=== PATIENT | male | born 1985 | race Caucasian/White ===

== ENCOUNTER 2019-11-11 17:25 | Observation (INO) ==
--- NOTE | 2019-11-11 17:48 | PROVIDER DOCUMENTATION ---
HPI-General Adult - General Stated Complaint: "OD, ??? " Time Seen by Provider: 11/11/19 17:32 Source: patient Allergies/Adverse Reactions: Patient Allergies Allergy/AdvReac Type Severity Reaction Status Date / Time No Known Allergies Allergy Verified 11/11/19 18:55 - History of Present Illness -Gen Adult Nature of Presenting Problems: Patient was apparently arrested early this morning and throughout the day became more and more altered. The officer with him was not able to tell me why the patient was originally arrested. He is unable to tell me if he drank anything or took any type of drugs. He is very restless and stated that he has been hearing voices but he doesn't want to harm himself or anyone else. He is rocking back and forth in the chair but is pleasant. He is covered in scratches and small abrasions but doesn't know why and states he is not in pain. He appears to be missing his left eye and states that he "pulled it out in a bar." Review of Systems - Adult - REVIEW OF SYSTEMS - ADULT Constitutional: reports: no symptoms reported. denies: chills, fever, fatique, night sweats, weight gain, weight loss Eyes: reports: see HPI. denies: discharge, dry eyes, decreased vision, double vision, eye pain, redness Ears, Nose, Mouth & Throat: reports: no symptoms reported. denies: ear discharge, hearing loss, tinnitus, epistaxis, nose pain, loose teeth, mouth swelling, hoarseness, throat swelling Cardiovascular: reports: no symptoms reported. denies: chest pain, heart murmur, irregular heart rate, palpitations, poor circulation, PND, syncope Respiratory: reports: no symptoms reported. denies: chronic cough, cough, dyspnea on exertion, hemoptysis, pleurisy, shortness of breath, wheezing Gastrointestinal: reports: no symptoms reported. denies: abdominal pain, hematemesis, diarrhea, frequent heartburn, nausea, poor appetite, rectal bleeding, vomiting Genitourinary: reports: no symptoms reported. denies: dysuria, frequency, hematuria, incontinence, urinary retention, urgency Musculoskeletal: reports: no symptoms reported. denies: bone pain, back pain, frequent leg cramps, joint swelling, muscle aches, muscle weakness, neck pain Integumentary: reports: no symptoms reported. denies: hives, itching, nail changes, rash, skin sores/ulcer Neurological: reports: no symptoms reported. denies: ataxia, dizziness/vertigo, headache/migraines, loss of balance, numbness, seizure, slurred speech, syncope Psychiatric: reports: no symptoms reported. denies: anxiety, anti-depressant use, alcohol/drug dependence, insomnia, panic attacks Endocrine: reports: no symptoms reported. denies: change in skin pigment, excessive sweating, goiter, heat intolerance, increased hunger, increased thirst Hematologic/Lymphatic: reports: no symptoms reported. denies: blood clots, easy bruising, low blood count, swollen lymph nodes, transfusions Allergic/Immunologic: reports: no symptoms reported. denies: allergic reactions, allergic rhinitis, asthma, food allergy, hay fever, hives, positive PPD All Other Systems: Reviewed and Negative Past History - Adult - PAST MEDICAL HISTORY-ADULT Review of Records: reports: Old Records Reviewed, Nursing Assessment Review, Medications Reviewed, Social history reviewed & non-contributory. Major Childhood Illnesses: reports: denies history Cardiovascular: reports: denies history Respiratory: reports: denies history Gastrointestinal: reports: denies history Obstetrical/Gynecological: reports: denies history Genitourinary: reports: denies history Musculoskeletal: reports: denies history Neurological: reports: denies history Psychiatric: reports: denies history Endocrine/Immune: reports: denies history Other Conditions: reports: denies history - PRIOR SURGERIES/PROCEDURES Surgical/Procedure History: reports: reviewed, not pertinent - IMMUNIZATION STATUS Childhood Immunizations: See Nurse Assessment Flu Vaccine: See Nurse Assessment - FAMILY HISTORY Family History: reviewed, not pertinent - SOCIAL HISTORY Smoking: denies Substance Use: denies Physical Exam-General - PHYSICAL EXAM-ADULT Initial Vital Signs Reviewed: Yes - CONSTITUTIONAL General Appearance: alert, no apparent distress, other (aggitated) - EYES Eyes: other (missing left eye) - HEAD, EARS, NOSE, MOUTH & THROAT HENMT: moist mucous membranes, normal ENT inspection (brusing around the left eye), other - NECK Neck: non-tender, full range of motion, supple - RESPIRATORY Respiratory: chest non-tender, lungs clear, normal breath sounds, no pleuratic chest pain - CARDIOVASCULAR Cardiovascular: normal peripheral pulses, regular rate, rhythm, no edema - GASTROINTESTINAL (ABDOMEN) Abdominal Exam: normal bowel sounds, non tender, soft - MUSCULOSKELETAL Back Exam: normal inspection, no CVA tenderness Extremity: normal range of motion, non-tender, normal gait - SKIN Integumentary: abrasion(s), ecchymosis (left eye) - NEUROLOGIC Neurologic: other (unable to assess r/t mentation) - PSYCHIATRIC Psych/Mental Status: anxious, disheveled, paranoid Progress - PLAN OF CARE/RESULTS Progress/Plan/Lab Results: Orders Category Date Time Status CT HEAD W/O CONTRAST [CT] Stat Exams 11/11/19 17:41 Ordered CBC WITH DIFF [HEME] Stat Lab 11/11/19 17:42 Ordered COMPREHENSIVE METABOLIC PANEL [CHEM] Stat Lab 11/11/19 17:42 Uncollected SALICYLATES [TDM] Stat Lab 11/11/19 17:42 Uncollected Tylenol [ACETAMINOPHEN] [TDM] Stat Lab 11/11/19 17:42 Uncollected UA NIMS W/REFLEX CULT [URINALYSIS] Stat Lab 11/11/19 17:41 Uncollected URINE DRUG SCREEN Stat Lab 11/11/19 17:41 Uncollected Result Diagrams: 11/11/19 18:10 11/11/19 18:10 - CT/MRI 2 CT Study: Head Impression: Normal, See EMR Report Departure - Departure Date of Disposition Decision: 11/11/19 Time of Disposition Decision: 20:04 DIAGNOSIS: Overdose Qualifiers: Encounter type: initial encounter Injury intent: undetermined intent Qualified Code(s): T50.904A - Poisoning by unspecified drugs, medicaments and biological substances, undetermined, initial encounter Disposition: ADMITTED INPATIENT Certified Medical Emergency: Emergent Condition: Critical Additional Instructions: ED Follow Up Instructions: You have been treated by a care provider in the Emergency Department. These instructions are being provided to you so you can have an understanding of how to care for yourself upon discharge. Upon discharge from the Emergency Depar tme, you are responsible for making arrangements for follow-up care by a physician of your choice. Take all prescribed medications as directed. Return to the Emergency Department immediately for any new or worsening symptoms. You may call the Physician Referral phone number at [phone] to obtain a list of Physicians who are taking new patients. Referrals and Follow-Ups: None,PCP [Primary Care Provider] - - Critical Care Note This patient required my direct & personal management of CC.: No Attestation - Physician/ IDALMIS Attestation Patient care was provided by Advanced Practice Provider:: Yes Advanced Practice Provider:: Guillaume Figueroa Advanced Practice Provider documentation review:: The Mid-level provider documentation, treatment plan and medical decision making was reviewed by the physician who agrees with all treatment and medical decision making by the MLP. The physician spent face to face time with patient:: No Advanced Practice Provider documentation review:: Supervising physician onsite and consulted in the evaluation and care of this patient. The physician did not have a face to face encounter with the patient.
[2019-11-11 18:23] LABS: BASO# 0.03 X1000 (0.0-0.2); BASO% 0.3 % (0.0-0.8); EOS# 0.21 X1000 (0.0-0.7); EOS% 1.8 % (0.0-10.0); HEMATOCRIT 44.5 % (42.0-52.0); HEMOGLOBIN 15.2 g/dL (14.0-18.0); IMM GRAN# 0.02 X1000 (0.0-0.04); IMM GRAN% 0.2 % (0.0-0.5); LYMPH# 3.32 X1000 (1.2-3.4); LYMPH% 28.7 % (20.5-51.1); MCH 29.2 PG (27-31); MCHC 34.2 g/dL (33-37); MCV 85.6 FL (81-99); MONO# 0.83 X1000 (0.11-0.59); MONO% 7.2 % (1.7-9.3); MPV 12.5 FL (7.4-10.4); NEUT# 7.14 X1000 (1.4-6.5); NEUT% 61.8 % (42.2-75.2); PLT 202 X1000 (130-400); RDW 13.5 % (11.5-14.5); WBC 11.55 X1000 (4.8-10.8)
[2019-11-11] MEDS ORDERED: STERILE WATER INJ. INJ ONE (18:45)
[2019-11-11] MEDS ORDERED: BENADRYL IM ONE (18:45)
[2019-11-11] MEDS ORDERED: ATIVAN IM ONE (18:45)
[2019-11-11] MEDS ORDERED: GEODON IM ONE (18:45)
[2019-11-11] MEDS ORDERED: ATIVAN ONE (18:50)
[2019-11-11] MEDS ORDERED: GEODON ONE (18:50)
[2019-11-11] MEDS ORDERED: BENADRYL ONE (18:51)
[2019-11-11] MEDS ORDERED: STERILE WATER INJ. ONE (18:51)
[2019-11-11 19:38] LABS: ACETAMINOPHEN < 1.2 ug/mL (10-30); AGAP 24; ALB/GLOB RATIO 1.8; ALBUMIN 4.8 g/dL (3.5-5.0); ALKALINE PHOSPHATASE 74 U/L (32-122); BUN 16 mg/dL (8-22); CALCIUM 9.5 mg/dL (8.8-10.2); CHLORIDE 96 mmol/L (98-107); COSMO 272; CREATININE 1.2 mg/dL (0.7-1.2); ESTIMATED GFR > 60; GLUCOSE 74 mg/dL (70-104); GOT 48 U/L (10-34); GPT 33 U/L (10-44); POTASSIUM 3.2 mmol/L (3.5-5.1); SALICYLATES < 3.00 mg/dL (3-10); SODIUM 136 mmol/L (136-145); TCO2 16 mmol/L (25-35); TOTAL PROTEIN 7.5 g/dL (6.3-8.3)
[2019-11-11] MEDS ORDERED: NS 1,000 ML IV ONE (19:43)
[2019-11-11] MEDS ORDERED: POTASSIUM CHLORIDE 40 MEQ/SWI 40 MEQ/100 ML IVPB IV ONE (19:44)
[2019-11-11 19:52] LABS: URINE SOURCE CLEAN CATCH
[2019-11-11 20:00] LABS: BILIRUBIN URINE NEGATIVE (NEGATIVE); BLOOD URINE NEGATIVE (NEGATIVE); COLOR YELLOW; GLUCOSE URINE NEGATIVE (NEGATIVE); KETONE URINE 40 mg/dL (NEGATIVE); LEUKOCYTES URINE NEGATIVE (NEGATIVE); NITRITE URINE NEGATIVE (NEGATIVE); PROTEIN URINE 100 mg/dL (NEGATIVE); SP GRAVITY URINE 1.038; TURBIDITY URINE CLEAR (CLEAR); UROBILINOGEN URINE 4 mg/dL (NORMAL)
[2019-11-11 20:07] LABS: UR EPITHELIAL CELLS <10 /HPF (<10); URINE BACTERIA NEGATIVE /HPF; URINE RBC <10 /HPF (<10); URINE WBC <10 /HPF (<10)
[2019-11-11 20:08] LABS: URINE CASTS NONE SEEN; URINE CRYSTALS NONE SEEN; URINE SMALL ROUND CELLS NONE SEEN; URINE YEAST NONE SEEN
--- NOTE | 2019-11-11 20:08 | Diag Imaging Result Doc PS360 ---
EXAM: CT HEAD W/O CONTRAST - 11/11/2019 HISTORY: ams, left eye bruising TECHNIQUE: CT head without contrast COMPARISON: None. FINDINGS: There is no evidence of intracranial hemorrhage, mass effect, midline shift, or hydrocephalus. There is no evidence of infarct, although acute infarcts may not be immediately visible. There is no evidence of skull fracture. 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 The globes of the right orbit appears grossly intact. There is no retrobulbar orbital hematoma identified. Visualized portions of paranasal sinuses and mastoid air cells appear clear. IMPRESSION: No visible acute intracranial abnormality. No hemorrhage or mass effect. 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 This exam was performed using automated exposure control, adjustment of mA or kV according to patient size, and/or use of iterative reconstruction technique. Electronically signed by Adonay Hanson 11/11/2019 8:05 PM
[2019-11-11 20:13] LABS: UR AMPHETAMINES QUAL PRESUMPTIVE POSITIVE (NONE DETECT); UR BARBITUATES QUAL NONE DETECTED (NONE DETECT); UR BENZODIAZEPIN QUAL PRESUMPTIVE POSITIVE (NONE DETECT); UR CANNABINOIDS QUAL NONE DETECTED (NONE DETECT); UR COCAINE QUAL NONE DETECTED (NONE DETECT); UR METHADONE QUAL NONE DETECTED (NONE DETECT); UR OPIATES QUAL NONE DETECTED (NONE DETECT); UR OXYCODONE QUAL NONE DETECTED (NONE DETECT); UR PCP QUAL NONE DETECTED (NONE DETECT)
--- NOTE | 2019-11-11 22:19 | HISTORY AND PHYSICAL ---
PRIMARY CARE PROVIDER: Unknown. CHIEF COMPLAINT: Altered mental status. HISTORY OF PRESENTING ILLNESS: A 34-year-old male who was brought to the emergency department by police due to the patient being altered, confused and agitated. He was seen in the ER. He became more agitated. Subsequently he was given Geodon and Ativan. At the time of my examination he was somewhat somnolent, however, occasionally made some movements. Subsequently he will require admission for further management. PAST MEDICAL HISTORY: Unknown. PAST SURGICAL HISTORY: Unknown. ALLERGIES: No known drug allergies. CURRENT MEDICATIONS: Unknown. SOCIAL HISTORY: Unknown. FAMILY HISTORY: Unknown. REVIEW OF SYSTEMS: Unable to obtain. PHYSICAL EXAMINATION: GENERAL: The patient is currently in handcuffs. He gets restless at times. VITAL SIGNS: Temperature 99.5 degrees, pulse 115, respirations 32, blood pressure 115/86. HEENT: Atraumatic, normocephalic. NECK: No masses. CHEST: Clear to auscultation. CARDIOVASCULAR: Regular rate and rhythm. ABDOMEN: Soft. Positive bowel sounds. EXTREMITIES: No edema. NEUROLOGIC: He is arousable. GENITOURINARY: No bladder distention. SKIN: Warm. LABORATORY DATA: WBC 11.55, hemoglobin 15.2, hematocrit 44.5, platelets 202,000. Sodium 136, potassium 3.2, chloride 96, CO2 is 16, BUN is 16, creatinine is 1.2, glucose is 74. ASSESSMENT: A 34-year-old male was brought to the emergency department by police due to patient being altered. During his initial evaluation, he was hypoglycemic. He was given some food, and his blood sugars improved somewhat. It is unclear if he had taken any illicit drugs or not. During his stay in the emergency department he became more agitated. He was given Geodon and Ativan, and then he became more somnolent. He will require admission for further management. 1. Altered mental status. 2. Hypoglycemia. 3. Acute psychosis. PLAN: 1. We will admit patient to medical floor with telemetry. 2. We will continue with neurologic checks. 3. We will monitor his blood glucose closely. 4. We will consult Psychiatry. 5. We will continue to follow, reassess and make further recommendation based on patient's clinical course. cc: Aren Llamas MD
[2019-11-11] MEDS ORDERED: TYLENOL PO PRN (22:33)
[2019-11-11] MEDS ORDERED: D5 NS 1,000 ML IV ONE (22:33)
[2019-11-11] MEDS ORDERED: ZOFRAN IV PRN (22:33)
[2019-11-12] MEDS ORDERED: NS 1,000 ML ONE (00:25)
[2019-11-12 06:02] LABS: BASO# 0.01 X1000 (0.0-0.2); BASO% 0.2 % (0.0-0.8); EOS# 0.17 X1000 (0.0-0.7); EOS% 3.6 % (0.0-10.0); HEMATOCRIT 40.8 % (42.0-52.0); HEMOGLOBIN 13.6 g/dL (14.0-18.0); LYMPH% 31.4 % (20.5-51.1); MCH 29.2 PG (27-31); MCHC 33.3 g/dL (33-37); MCV 87.6 FL (81-99); MONO# 0.37 X1000 (0.11-0.59); MONO% 7.8 % (1.7-9.3); MPV 11.8 FL (7.4-10.4); NEUT# 2.72 X1000 (1.4-6.5); PLT 107 X1000 (130-400); RBC 4.66 XMIL (4.7-6.1); RDW 13.9 % (11.5-14.5); WBC 4.77 X1000 (4.8-10.8)
[2019-11-12 07:01] LABS: AGAP 10; BUN 11 mg/dL (8-22); CALCIUM 8.2 mg/dL (8.8-10.2); CHLORIDE 105 mmol/L (98-107); COSMO 273; CREATININE 0.9 mg/dL (0.7-1.2); ESTIMATED GFR > 60; GLUCOSE 92 mg/dL (70-104); POTASSIUM 3.4 mmol/L (3.5-5.1); SODIUM 137 mmol/L (136-145); TCO2 22 mmol/L (25-35)
[2019-11-12] MEDS ORDERED: LITHIUM CARBONATE PO ONE (12:47)
[2019-11-12 12:51] VITALS: BP 120/87
--- NOTE | 2019-11-12 21:48 | DISCHARGE SUMMARY ---
ADMISSION DATE: 11/11/2019 DISCHARGE DATE: 11/12/2019 DISCHARGE DIAGNOSIS: Acute psychosis, but may be related to medications he does have a history of bipolar. UDS was positive for amphetamines, which is not clear he is on any amphetamines and he did not admit to taking them per his girlfriend. There was an altercation the police were involved and he was arrested. He became more altered throughout the day. Officer did not reveal that, but according to the girlfriend, they had an altercation and she felt he drank too much but did not describe drinking too much, and then he had an argument with his girlfriend ended up being arrested. There was apparently hallucination but no suicidality. He says he is not sure exactly what happened, so he ended up being admitted. His sugar was felt to be low with a blood sugar 74. It did seem that low, but in any case on the following day he very insistent on going home. We did get a [facility] consult, and I believe he was not felt to be appropriate intermittently. He is on fairly high dose lithium. His lithium level is still pending. He will follow up with his psychiatrist. He may need adjustment in his medications. He was stable for discharge. He was not hallucinating, had no active psychosis issues prior to discharge. DISCHARGE MEDICATIONS: Suring 900 b.i.d. and Zoloft 100 daily. DISCHARGE CONDITION: Stable. cc: Dominik Ray MD
== END 2019-11-12 14:10 | disposition home or self-care (01) ==
LOC: EDIPHOLD 17:25 → ED 17:25 → SUATTDRO 21:14 → EDIPHOLD 11-12 14:06
PROVIDERS: ATTEND Internal Medicine